=== PATIENT | female | born 1975 | race Caucasian/White ===

== ENCOUNTER 2018-07-28 09:27 | Outpatient (CLI) | payer BC ==
--- NOTE | 2018-07-28 15:04 | CN ---
SERVICE DATE: 07/28/2018 INTRODUCTION: This 43-year-old female has severe longstanding right upper quadrant abdominal pain, nausea and vomiting postprandially, and some abdominal cramping and diarrhea. She has been labeled as an irritable bowel syndrome patient, but is not currently on medication or treatment for it. She has an ultrasound that did not show stones, but a HIDA scan did show an ejection fraction of 30%, which is on the low side of being abnormal. She states that most of this is related to eating and within an hour afterwards, she has right upper quadrant cramping. ALLERGIES: Include cephalexin, penicillin, and hydrocodone. PAST SURGICAL HISTORY: Includes a ganglion cyst of the right wrist, nasal septum reconstruction, and elective other nasal surgery. FAMILY HISTORY AND SOCIAL HISTORY: She does have a family history of hypertension and diabetes. She lives in [facility] and is , has a 17- year-old child at home. MEDICATIONS: Include: 1. Benadryl. 2. Zolmitriptan. 3. Zofran. 4. Meclizine. 5. Estrogen replacement. 6. Famotidine. 7. Acetaminophen every 6 hours p.r.n. REVIEW OF SYSTEMS: Positive for her history of irritable bowel syndrome and migraine headaches. PHYSICAL EXAMINATION: HEENT: Normal. Chest And Lungs: Clear bilaterally. Heart: Normal sinus rhythm without murmur. Abdomen: Soft and nontender. No evidence of hernias or masses. Extremities: Have good range of motion. There is no edema. Neurologic: Grossly intact. ASSESSMENT: Right upper quadrant abdominal pain with abnormal HIDA ejection fraction. PLAN: I discussed the risks, benefits, and expected outcomes of a laparoscopic cholecystectomy with her. Since she does not have stones, I think her chances of getting completely better are little bit less than for acute cholecystitis with stones; however, symptom-warren, she is fairly classic for biliary colic, and she seems to be symptomatic enough that this disturbs her daily life function and is requesting that we proceed with this procedure in hopes to get better. I am currently going to do this tomorrow at [facility] here, and we discussed this also in the clinic with her . [facility] /[id number]
== END 2018-07-28 10:21 | disposition home or self-care (01) ==
LOC: DL.GSCL 09:27
DX: R10.11 Right upper quadrant pain (principal)
CPT/HCPCS: 99203

== ENCOUNTER 2018-07-29 07:27 | Day surgery (SDC) | payer BC ==
[2018-07-29] MEDS ORDERED: Ketorolac 30 MG/ML SDV IVPUSH ONE (07:28)
[2018-07-29] MEDS ORDERED: diphenhydrAMINE 50 MG/ML SDV IV ONE (07:28)
[2018-07-29] MEDS ORDERED: Glycopyrrolate 0.2 MG/ML 2 ML SDV IV ONE (07:28)
[2018-07-29] MEDS ORDERED: Midazolam 1 MG/ML 2 ML SDV IV ONE (07:28)
[2018-07-29] MEDS ORDERED: Ondansetron 4 MG/2 ML SDV IV ONE (07:28)
[2018-07-29] MEDS ORDERED: ePHEDrine 50 MG/ML SDV IV ONE (07:28)
[2018-07-29] MEDS ORDERED: fentaNYL 100 MCG/2 ML SDV IV ONE (07:28)
[2018-07-29] MEDS ORDERED: Promethazine 25 MG/ML SDV ONE (07:28)
[2018-07-29] MEDS ORDERED: Dexamethasone 4 MG/ML SDV IV ONE (07:28)
[2018-07-29] MEDS ORDERED: Neostigmine Methylsulfate 10 MG/10 ML MDV ONE (07:28)
[2018-07-29] MEDS ORDERED: Rocuronium 50 MG/5 ML Vial IV ONE (07:28)
[2018-07-29] MEDS ORDERED: Famotidine 20 MG/2 ML SDV IV ONE (07:28)
[2018-07-29] MEDS ORDERED: Propofol 200 MG/20 ML SDV IV ONE (07:28)
[2018-07-29] MEDS ORDERED: Succinylcholine 200 MG/10 ML MDV IV ONE (07:28)
[2018-07-29] MEDS ORDERED: Lactated Ringers 1,000 ML IV SCH (07:30)
[2018-07-29] MEDS ORDERED: Lidocaine 1% with EPINEPHrine 1:100,000 20 ML MDV ONE (08:08)
[2018-07-29] MEDS ORDERED: Clindamycin Phosphate 600 MG/4 ML SDV ONE (08:45)
[2018-07-29] MEDS ORDERED: Clindamycin Phosphate 600 MG in Sodium Chloride 0.9% 100 ML IV ONE (08:51)
[2018-07-29] MEDS ORDERED: fentaNYL 100 MCG/2 ML SDV IVPUSH ONE (11:02)
[2018-07-29] MEDS ORDERED: Scopolamine 1.5 MG Transdermal Patch TRDERM ONE (11:05)
[2018-07-29] MEDS ORDERED: Scopolamine 1.5 MG Transdermal Patch ONE (11:11)
--- NOTE | 2018-07-29 11:22 | OR ---
DATE: 07/29/2018 PREOPERATIVE DIAGNOSES: 1. Chronic cholecystitis. 2. Abnormal HIDA ejection fraction. POSTOPERATIVE DIAGNOSES: 1. Chronic cholecystitis. 2. Abnormal HIDA ejection fraction. PROCEDURE: Laparoscopic cholecystectomy. ANESTHESIA: General. ESTIMATED BLOOD LOSS: Minimal. SPECIMEN: Gallbladder. OPERATIVE FINDINGS: Normal. INDICATION FOR PROCEDURE: This 43-year-old female has postprandial right upper quadrant abdominal pain and nausea. She has a HIDA ejection fraction of 30%. No stones were noted on ultrasound. PROCEDURE IN DETAIL: After adequate preparation, an infraumbilical 5 mm trocar was placed. The abdomen was insufflated. Three other trocars were placed under direct vision. Examination of the abdomen was normal. The gallbladder did not have any adhesions. It was not thick walled and appeared to be normal, bluish, mobile tissue. The cystic triangle structures were dissected free, and the cystic duct triply clipped and divided. The cystic artery was then identified and also triply clipped and divided. The gallbladder was taken off the liver bed using blunt, sharp, and Bovie dissection. There was a small hole in the gallbladder. I opened this up and drained the entire gallbladder and suctioned the rest of the bile clear. There were no stones. The gallbladder was put in a sterile retrieval bag and brought out through the epigastric trocar site. The abdomen was irrigated in the right upper quadrant and suctioned clear. The abdomen desufflated, and the skin was closed with Vicryl. [facility] /[id number]
[2018-07-29 14:38] VITALS: BP 127/71; PULSE 112
== END 2018-07-29 13:40 | disposition home or self-care (01) ==
LOC: DL.SDS 07:27 → EDSTATUS 09:00 → DL.SDS 13:40
PROVIDERS: ATTEND Surgery
DX: K81.1 Chronic cholecystitis (principal); R93.2 Abnormal findings on diagnostic imaging of liver and biliary tract; K58.9 Irritable bowel syndrome, unspecified; G43.909 Migraine, unspecified, not intractable, without status migrainosus; D69.6 Thrombocytopenia, unspecified; Z88.1 Allergy status to other antibiotic agents; Z88.5 Allergy status to narcotic agent; Z88.0 Allergy status to penicillin; Z79.891 Long term (current) use of opiate analgesic; Z79.899 Other long term (current) drug therapy
CPT/HCPCS: 47562; 81025; A9270; J0330; J1100; J1200; J1885; J2250; J2405; J2550; J2704; J2710; J3010; J3490; J7050; J7120

== ENCOUNTER 2019-01-30 08:20 | Day surgery (SDC) | payer BC ==
[2019-01-30] MEDS ORDERED: Propofol 200 MG/20 ML SDV IV ONE (08:21)
[2019-01-30] MEDS ORDERED: Dexamethasone 4 MG/ML SDV IV ONE (08:21)
[2019-01-30] MEDS ORDERED: Ondansetron 4 MG/2 ML SDV IV ONE (08:21)
[2019-01-30] MEDS ORDERED: Ketorolac 30 MG/ML SDV IVPUSH ONE (08:21)
[2019-01-30] MEDS ORDERED: fentaNYL 100 MCG/2 ML SDV IV ONE (08:21)
[2019-01-30] MEDS ORDERED: Lactated Ringers 1,000 ML IV ONE (08:21)
[2019-01-30] MEDS ORDERED: Lidocaine 1% 30 ML SDV ONE ×2 (08:21→11:19)
[2019-01-30] MEDS ORDERED: Midazolam 1 MG/ML 2 ML SDV IV ONE (08:21)
[2019-01-30] MEDS ORDERED: Lactated Ringers 1,000 ML IV SCH (09:00)
[2019-01-30] MEDS ORDERED: Lidocaine 1% 30 ML SDV INJECT ONE (11:46)
[2019-01-30 15:03] VITALS: BP 124/71; PULSE 92
--- NOTE | 2019-01-30 18:10 | OR ---
DATE: 01/30/2019 INDICATION: This 43-year-old female has a skin lesion on the middle finger of the left hand. This is in the middle phalanx area on the dorsal surface. It measures 1.5 x 0.5 cm. PREOPERATIVE DIAGNOSIS: Skin lesion, left middle finger. POSTOPERATIVE DIAGNOSIS: Skin lesion, left middle finger. PROCEDURE: Full-thickness excision of left middle finger lesion measuring 1.5 x 0.5 cm. ANESTHESIA: Local plus MAC. SPECIMEN: Skin lesion. PROCEDURE IN DETAIL: After adequate preparation, local anesthesia was used to infiltrate an area on the left middle finger. This was in the middle phalanx area between the proximal and distal interphalangeal joint. This did not appear to be malignant lesion and there were no margins. I just simply excised the lesion, which measured 1.5 x 0.5 cm. The skin was closed with interrupted nylon sutures. The patient was taken to recovery room. [facility] /[id number] [place]
== END 2019-01-30 13:15 | disposition home or self-care (01) ==
LOC: DL.SDS 08:20
PROVIDERS: ATTEND Surgery
DX: L98.8 Other specified disorders of the skin and subcutaneous tissue (principal); Z88.0 Allergy status to penicillin; Z88.1 Allergy status to other antibiotic agents; Z79.899 Other long term (current) drug therapy
CPT/HCPCS: 11422; 81025; J1100; J1885; J2001; J2250; J2405; J2704; J3010; J7120